=== PATIENT | female | born 1985 | race Asian ===

== ENCOUNTER 2020-10-26 14:20 | Emergency (ER) | payer MEDICAID ==
[~2020-10-26] VITALS: Ht 152.4 cm; Wt 56.7 kg
[2020-10-26 14:49] VITALS: BP 124/83; Ht 152.4 cm; Wt 56.7 kg
[2020-10-26 17:08] LABS: BASOPHIL % 0.7 % (0.2-1.3); PLATELET COUNT 361 x10^3mcL (179-408); RED CELL DISTRIBUTION WIDTH 13.4 % (12.3-17.7)
== END 2020-10-26 19:20 | disposition home or self-care (01) ==
LOC: ED 14:20
PROVIDERS: Emergency Medicine
DX: N93.9 Abnormal uterine and vaginal bleeding, unspecified (principal); N92.1 Excessive and frequent menstruation with irregular cycle